=== PATIENT | female | born 1960 | race Caucasian/White ===

== ENCOUNTER → 2016-08-08 07:51 | Day surgery (SDC) | payer BC ==
[~2016-08-08 07:51] MED LIST: Acetaminophen TAB* 325 MG PO PRN; Buffered Lidocaine 1% SYRIN* 3 ML/SYR SYRINGE INTRADERM ONE; Bupivacaine 0.5% SDV PF* 30 ML VIAL ONE; Dexamethasone IV* 4 MG/ML 1 ML (4 MG) ONE; DiMENhydriNATE IV* 50 MG/ML VIAL IV PUSH PRN; EPHEDrine (Pressors)* 50 MG/ML VIAL ONE; Famotidine IV* 10 MG/ML 2 ML (20 mg) ONE; Ketorolac INJ* 30 MG/ML 1 ML VIAL ONE; Lidocaine 2% PF* 5 ML VIAL ONE; Midazolam* 1 MG/ML 2 ML VIAL (2 MG) ONE; Ondansetron INJ* 2 MG/ML VIAL IV PRN; Ondansetron INJ* 2 MG/ML VIAL ONE; PROCHLORPERAZINE INJ 5 MG/ML 2 ML VIAL IV PRN; Propofol* 10 MG/ML 20 ML BTL IV PUSH ONE; ceFAZolin 2 GM PREMIX(*) 2 GM/50 ML BAG IVPB ONE; fentaNYL* 50 MCG/ML 2 ML VIAL (100 MCG VIAL) ONE; oxyCODONE TAB* 5 MG TAB ONE
[2016-08-08] MEDS: fentaNYL* 50 MCG/ML 2 ML VIAL (100 MCG VIAL) IV PRN ×3 (10:23→10:46)
[2016-08-08 11:01] VITALS: BP 101/77
--- NOTE | 2016-08-08 23:26 | RAD ---
INDICATION: Revision of RIGHT forefoot osteotomy. COMPARISON: July 20, 2016 radiographs. TECHNIQUE: 3 seconds fluoroscopy. FINDINGS: Spot images document osteotomy at the distal metaphyses of the second and third metatarsals with cortical plate and screws bridging the second metatarsal osteotomy site and 1or 2 screws bridging the third metatarsal osteotomy site. Incompletely visualized wire fixation extends across the second proximal interphalangeal joint. Healed first metatarsal osteotomy. IMPRESSION: Procedural fluoroscopy. CPT II Codes: 6045F
--- NOTE | 2016-08-09 12:15 | OP ---
OPERATIVE REPORT: DATE OF OPERATION: 08/08/16 DATE OF : 58 SURGEON: Aron Henley MD LITIGATION EXAMINER: Jeanne Dominique PA-C PRE-OP DIAGNOSES: Right forefoot metatarsalgia with chronic synovitis and pain at the second and th ird metatarsophalangeal joints with second hammertoe. POST-OP DIAGNOSES: Right forefoot metatarsalgia with chronic synovitis and pain at the second and t hird metatarsophalangeal joints with second hammertoe. OPERATIVE PROCEDURE: Shortening osteotomy of the second and third metatarsals and PIP resection art hroplasty #2 toe, right foot. DESCRIPTION OF PROCEDURE: The patient was taken to the operating room where a longitudinal incision was made between the second and third metatarsal head area. Each metatarsal head was approached fro m the dorsal aspect with care taken to preserve the soft tissue. A dividing osteotomy was made dors al to proximal plantar, standard -type cut which was double cut though to remove bone. We translated the heads proximally and pinned initially with a twist-off screw. This worked very well for the third but on the second, the neck split. So, we revised it with a T-shaped mini frag screw using 2.0 cortical screws. Good fixation was obtained. We made a transverse elliptical incision over the second PIP joint with the collateral ligaments inc ised. We removed the bone condyles with a microsagittal saw and pinned the joint longitudinally wit h a 0.062 C-wire. We irrigated all wounds closing with a couple of 3-0 Vicryl and mostly 4-0 nylon sutures and a compression dressing applied. [id number]/[facility] #: [id number]
== END | disposition home or self-care (01) ==
LOC: OR 07:51
PROVIDERS: ATTEND Orthopaedic Surgery
DX: M77.41 Metatarsalgia, right foot (principal); M65.871 Other synovitis and tenosynovitis, right ankle and foot; M20.41 Other hammer toe(s) (acquired), right foot; J44.9 Chronic obstructive pulmonary disease, unspecified; Z87.891 Personal history of nicotine dependence; Z79.891 Long term (current) use of opiate analgesic; K21.9 Gastro-esophageal reflux disease without esophagitis
CPT/HCPCS: 76000; 88304; 88311; A9270-GY; C1713; C1776; J0690; J1100; J1885; J2250; J2405; J2704; J3010

== ENCOUNTER 2017-12-22 12:04 | Emergency (ER) | payer BC, OTHER ==
--- OUTSIDE RECORDS SUMMARY | 2017-12-22 12:20 | XMS REPORT ---
:1960 External Reference #:[id number] Author Organization [facility] Address [address], [address] [place] [address] Phone [phone] Care Team Providers Name Role Phone Mahendra Raman PA Care Team Information Striper Machine Unavailable Mahendra Raman PA Primary Care Physician Unavailable Payers Type Date Identification Numbers Payment Provider Subscriber Commercial Policy Number: [id number] [facility] Alfonso Rodgers PayID: [id number] [address] [place] [address] Problems Date Description Provider Status Onset: 06/26/2017 Tear film insufficiency Jay Hanley MD Active Family History Date Family Member(s) Problem(s) Comments Father Alive Mother Alive First Son Alive First Son 34 Second Son Alive Second Son 32 First Daughter Alive First Daughter 32 First Sister Alive Second Sister Alive Third Sister Alive Social History Type Date Description Comments Marital Status 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 please dispense 180 vials, which is 3 month supply Tetracycline 00/00/ Active Capsules 500mg Nolan, HCL 0000 MD Kai Omeprazole / Active Capsules DR 40mg Take 1 Unknown 0000 Capsule By Mouth Twice A Day Before Meals Magnesium Oxide / Active Tablets 400(241.3 Take 1 Tab Unknown 0000 Mg) mg By Mouth Three Times A Day W/ Meals Lyrica / Active Capsules 75mg Take One Unknown 0000 Capsule By Mouth 3 Times A Day Ketoconazole / Active Shampoo 2% Apply To Unknown 0000 Scalp 2 Times Per Week For 4 Weeks Hydroxyzine HCL / Active Tablets 10mg Take 2 Tabs Unknown 0000 By Mouth Three Times Daily as Needed For Itching Trazodone HCL / Active Tablets 150mg Take 2 Unknown 0000 Tablets By Mouth Every Day AT Bedtime Fluarix / Active Beth 0.5ml Unknown Quadrivalent 0000 Venlafaxine HCL / Active Caps ER 150mg Take 1 Unknown ER 0000 24HR Capsule Every Day Montelukast / Active Tablets 10mg Take 1 Unknown Sodium 0000 Tablet By Mouth Nightly AT Bedtime Fluticasone / Active Suspension 50mcg/Act Instill 2 Unknown Propionate 0000 Sprays Into Each Nostril Daily Lotemax 06/26/ Hx Suspension 0.5% 5ml 1 drop each H04.123 Jay 2018 - eye daily Talon 10/13/ as needed 2018 for irritation Clindamycin / Hx Gel 1-5% Katherine Frnacisco 0000 - Kai, Samuel 10/31/ 2018 Betamethasone / Hx Cream 0.05% Apply Unknown Dipropionate 0000 - Sparingly To Forearms 2018 Twice A Day as Needed For Itch Zolpidem / Hx Tablets 10mg Take 1 Unknown Tartrate 0000 - Tablet By Mouth 2018 Nightly AT Bedtime as Needed For Insomnia Hydrocodone-Chris / Hx Tablets 5-325mg Take 1 To 2 Unknown taminophen 0000 - Tablets By 10/31/ Mouth Once 2018 Daily as Needed Meloxicam / Hx Tablets 15mg Take 1 Unknown 0000 - Tablet By 10/31/ Mouth Every 2018 Day Premarin / Hx Cream 0.625mg/G Apply 1 Unknown 0000 - M Gram To Affected 2018 Area Two Times A Week AT Bedtime Amitriptyline / Hx Tablets 25mg Take 1 Unknown HCL 0000 - Tablet By Mouth 2018 Nightly AT Bedtime-May Increase To 2 Tablets as Results Test Date Test Result H/L Range Note Laboratory test finding 07/23/2016 Creatinine 0.9 mg/dL 0.6-1.3 1 Calcium 8.9 mg/dL 8.5-10.1 1 Laboratory test finding 06/30/2016 Vitamin D,25-Hydroxy 67.9 ng/mL 30.0- 100.0 2, 3 1 NODX 2 N95.2 N94.10 3 Vitamin D deficiency has been defined by the [place] [employer] and an Endocrine Society practice guideline as a level of serum 25-OH vitamin D less than 20 ng/mL (1,2). The Endocrine Society went on to further define vitamin D insufficiency as a level between 21 and 29 ng/mL (2). 1. IOM ([place] [employer]). 2010. Dietary reference intakes for calcium and D. [place]: The National Academies Press. 2. Abrahan MF, Edwin NC, Natanael MARTINES, et al. Evaluation, treatment, and prevention of vitamin D deficiency: an Endocrine Society clinical practice guideline. JCEM. 2010; 96(7):1911-30. Performed at: RN - [facility] [address] [id number] Computer Systems Manager: Francine Sanchez MD, Phone: [phone] Procedures Date CPT Code Description Status 10/31/2017 43569 Eye Exam Est Patient Comprehensive Completed 06/26/2017 32874 Visual Field Exam Extended, Unilateral Or Bilateral Completed 06/26/2017 92933 Eye Exam New Patient Comprehensive Completed 01/08/2015 36478 Anesthesia, Lower Leg Bone Surgery Open Not Otherwise Completed Spec 12/14/2010 96985 Asp./Injection major joint Completed 02/08/2005 05951 Arthroscopy w/meniscectomy including meniscal shaving Completed Encounters Type Date Location Provider CPT E/M Dx Office Visit 10/13/2017 12:00[place] [address] H10.13 Plan of Care Future Appointment(s):12/25/2017 3:45 pm - [facility] at [facility]/ 26/2018 - Jay Hanley MDH04.123 Dry eye syndrome of bilateral lacrimal glandsNew Medication:Lotemax 0.5 %Comments:- warm compresses- artificial tears both eyes- consider ointment at night - lacri-lube, systane, refresh pm- punctal occlusion placed rul, yuan following dilation with 0.4 mm plugs- s/p thermal cautery rll, llI with 0.2 mm patency; there appears to be increased dye disappearance time- recommend continue restasis 1 drop each eye 2 times daily - pt reports a history of eyelid malposition; she reportsthe lateral canthus was sutured surgically; she feels she would like it be altered - will refer back to dr portillo for further evaluationFollow up:6 months dilate ou
[2017-12-22 12:42] VITALS: BP 92/69
--- NOTE | 2017-12-22 13:33 | UC ---
Abdominal Pain Female HPI - HPI Summary HPI Summary: Pt c/o right upper and lower quadrant pain X 1 month. Pt had gastric emptying testing this morning with "radioactive egg sandwich" at [facility] and reports that she stated that she told the "nurse" that her abdomen was painful, and "nurse" told her to call her "doctor". Pt stated that PCP and GI specialist are both out on vacation. Pt denies black tarry stools, dizziness, or coffee ground vomit - History of Current Complaint Chief Complaint: UCGI Stated Complaint: STOMACH COMPLAINT Time Seen by Provider: 12/22/17 13:00 Hx Obtained From: Patient ?: No Onset/Duration: Gradual Onset, Lasting Weeks, Still Present Timing: Constant Severity Initially: Mild Severity Currently: Moderate Pain Intensity: 8 Location: Discrete At: RUQ, Discrete At: RLQ Radiates: No Character: Colicy, Cramping, Dull Aggravating Factor(s): Nothing Alleviating Factor(s): Nothing Associated Signs and Symptoms: Positive: Constipation - has diagnosed delayed gastric emptying, Nausea - has zofran - Risk Factors Ectopic Risk Factor: Negative Ovarian Torsion Risk Factor: Negative Allergies/Adverse Reactions: Allergies Allergy/AdvReac Type Severity Reaction Status Date / Time No Known Allergies Allergy Verified 12/22/17 12:34 Home Medications: Home Medications Amoxicillin/Clavulanate TAB* [Augmentin TAB 875*] 875 mg PO BID PRN 12/22/17 [ History Confirmed 12/22/17] Clindamycin Phos/Benzoyl Perox [Benzaclin Gel 35G Pump] 1 applic TOPICAL BID [History Confirmed 12/22/17] Famotidine TAB* [Pepcid 20 MG TAB*] 20 mg PO BID 12/22/17 [History Confirmed ] Ketoconazole [Nizoral A-D] 1 applic TOPICAL SEE INSTRUCTIONS 12/22/17 [History Confirmed 12/22/17] Linaclotide (NF) [Linzess (NF)] 145 mcg PO DAILY 12/22/17 [History Confirmed ] Montelukast Sodium TAB* [Singulair 10 MG TAB*] 10 mg PO BEDTIME 12/22/17 [ History Confirmed 12/22/17] Omeprazole CAP* [Prilosec CAP* 20 MG] 40 mg PO BID 12/22/17 [History Confirmed 12/22/17] Ondansetron TAB* [Zofran 4 MG Tab*] 4 mg PO DAILY 12/22/17 [History Confirmed ] Sucralfate TAB* [Carafate*] 1 gm PO ACHS 12/22/17 [History Confirmed 12/22/17] Tetracycline HCl 500 mg PO BID 12/22/17 [History Confirmed 12/22/17] Varenicline 0.5 mg Tab(Nf) [Chantix 0.5 MG TAB(NF)] 0.5 mg PO SEE INSTRUCTIONS 12/22/17 [History Confirmed 12/22/17] Venlafaxine EXT RELEASE CAP* [Effexor Xr CAP*] 225 mg PO DAILY 12/22/17 [ History Confirmed 12/22/17] Zolpidem TAB* [Ambien*] 10 mg PO BEDTIME 12/22/17 [History Confirmed 12/22/17] clonazePAM TAB(*) [Klonopin TAB(*)] 0.5 mg PO BID 12/22/17 [History Confirmed ] hydrOXYzine HCL TAB* [Atarax 25 MG TAB*] 25 mg PO TID 12/22/17 [History Confirmed 12/22/17] PMH/Surg Hx/FS Hx/Imm Hx Previously Healthy: No Cardiovascular History: Cardiac Disease GI/ History: Gastroesophageal Reflux, Gastrointestional Bleed - Surgical History Surgical History: Yes Surgery Procedure, Year, and Place: BUNIONECTOMY RIGHT FOOT-2005. HYSTERECTOMY 2000 - Family History Known Family History: Positive: Cardiac Disease - Social History Occupation: Employed Full-time Lives: With Family Alcohol Use: None Substance Use Type: None Substance Use Comment - Amount & Last Used: 6-8 cups/day Smoking Status (MU): Former Smoker Type: Cigarettes Amount Used/How Often: 1 PPD Length of Time of Smoking/Using Tobacco: Since Age 15 (quit for 4 years) Have You Smoked in the Last Year: No When Did the Patient Quit Smoking/Using Tobacco: quit 2013 Review of Systems Constitutional: Negative Skin: Negative Eyes: Negative ENT: Negative Respiratory: Negative Cardiovascular: Negative Gastrointestinal: Abdominal Pain, Nausea Genitourinary: Negative Motor: Negative Neurovascular: Negative Musculoskeletal: Negative Neurological: Negative Psychological: Negative Is Patient Immunocompromised?: No All Other Systems Reviewed And Are Negative: Yes Physical Exam Triage Information Reviewed: Yes Appearance: Thin Vital Signs: Initial Vital Signs Temp 98 F 12/22/17 12:36 Pulse 100 12/22/17 12:36 Resp 18 12/22/17 12:36 BP 92/69 12/22/17 12:36 Pulse Ox 100 12/22/17 12:36 Vital Signs Reviewed: Yes Eye Exam: Normal ENT: Positive: Hearing grossly normal Dental: Positive: Gross Decay/Caries @ Neck exam: Normal Respiratory Exam: Normal Cardiovascular Exam: Normal Abdomen Description: Positive: Other: - RUQ pain, RLQ pain Bowel Sounds: Positive: Present Musculoskeletal Exam: Normal Neurological Exam: Normal Psychological Exam: Normal Skin Exam: Normal Abd Pain Female Course/Dx - Course Course Of Treatment: I discussed with the patient the need to follow up with PCP and GI as soon as possible. I also discussed with the pt the need to go to ER if pain worsens and that with her hx of delayed gastric emptying, narcotics for pain management was not appropriate. Pt verbalized understanding and agreed to plan of care. I also discussed with the pt the risk of GI perforation with her and that she would need to go to ER and to call 911 - Differential Dx/Diagnosis Differential Diagnosis: Constipation, Irritable Bowel Syndrome Provider Diagnoses: abdominal pain Discharge - Sign-Out/Discharge Documenting (check all that apply): Patient Departure - Discharge Plan Condition: Stable Disposition: HOME Prescriptions: traMADol TAB* [Ultram*] 50 mg PO Q12H PRN #10 tab MDD 2 PRN Reason: Pain Patient Education Materials: Abdominal Pain (ED) Referrals: Chelsey Raman PA [Primary Care Provider] - As Soon As Possible Additional Instructions: PLEASE FOLLOW UP WITH YOUR PCP AND GI SPECIALIST SOON POSSIBLE. IF YOU YOUR PAIN DOES NOT IMPROVE, PLEASE GO DIRECTLY TO THE EMERGENCY ROOM. WE ARE UNABLE TO APPROPRIATELY MANAGE YOUR PAIN AND YOU SHOULD SEEK CARE FROM YOUR PCP AND GI SPECIALIST - Billing Disposition and Condition Condition: STABLE Disposition: Home
== END 2017-12-22 13:44 | disposition home or self-care (01) ==
LOC: UCCORT 12:04
DX: R10.31 Right lower quadrant pain (principal); R10.11 Right upper quadrant pain; K21.9 Gastro-esophageal reflux disease without esophagitis; B99.9 Unspecified infectious disease; Z87.891 Personal history of nicotine dependence
CPT/HCPCS: 99213; G0463